=== PATIENT | female | born 1960 | race Caucasian/White ===

== ENCOUNTER 2018-10-25 11:24 | Emergency (ER) | payer OTHER ==
--- NOTE | 2018-10-25 14:18 | ER Document Report ---
ED Medical Screen (RME) - General Chief Complaint: Leg Pain Stated Complaint: RIGHT LEG PAIN Time Seen by Provider: 10/25/18 14:12 Primary Care Provider: KANDACE JONES MD [Primary Care Provider] - Follow up as needed Notes: Patient is a 4-year-old female presents to the emergency department with pain in her right popliteal region. States is been there for a week. Patient's denying any trauma. Patient states she was told by her primary care provider rule out DVT. Patient has no history of DVT, PE, is on no anticoagulants. GENERAL: Alert, interacts well. No acute distress. EXTREMITIES: Moves all 4 extremities spontaneously. No edema, normal radial and dorsalis pedis pulses bilaterally. No cyanosis. Minor pain right calf. I have greeted and performed a rapid initial assessment of this patient. A co mprehensive ED assessment and evaluation of the patient, analysis of test results and completion of the medical decision making process will be conducted by additional ED providers. I have specifically instructed the patient or family members with the patient to immediately return to any nursing staff should anything change in the patient's condition or with their chief complaint. Generalized pain right popliteal, no obvious swelling, erythema This medical record was dictated with voice recognizing software. There may be grammatical, syntax errors that are unintended. TRAVEL OUTSIDE OF THE [place] IN LAST 30 DAYS: No - Related Data Allergies/Adverse Reactions: No Known Allergies Allergy (Unverified 10/25/18 11:27) Past Medical History - Social History Frequency of alcohol use: Occasional Drug Abuse: None Renal/ Medical History: Denies: Hx Peritoneal Dialysis Physical Exam - Vital signs Vitals: Temp Pulse Resp BP Pulse Ox 98.1 F 53 L 16 171/97 H 96 10/25/18 11:43 10/25/18 11:43 10/25/18 11:43 10/25/18 11:43 10/25/18 11:43 Course - Vital Signs Vital signs: Temp Pulse Resp BP Pulse Ox 98.1 F 53 L 16 171/97 H 96 10/25/18 11:43 10/25/18 11:43 10/25/18 11:43 10/25/18 11:43 10/25/18 11:43 Doctor's Discharge - Discharge Referrals: KANDACE JONES MD [Primary Care Provider] - Follow up as needed
--- NOTE | 2018-10-25 16:23 | RADIOLOGY REPORT (SQ) ---
EXAM DESCRIPTION: VENOUS UNILATERAL LOWER COMPLETED DATE/TIME: 10/25/2018 4:13 pm REASON FOR STUDY: R lower leg, pain popliteal and calf COMPARISON: None. TECHNIQUE: Dynamic and static shepherd scale and color images acquired of the right leg venous system. S elected spectral images acquired with additional compression and augmentation maneuvers. The contrala teral common femoral vein and saphenofemoral junction were also imaged. Images stored on PACS. LIMITATIONS: None. FINDINGS: COMMON FEMORAL: Normal phasicity, compression and augmentation. No visualized echogenic ma terial on shepherd scale. No defects on color images. FEMORAL: Normal compression and augmentation. No visualized echogenic material on shepherd scale. No defe cts on color images. POPLITEAL: Normal compression, augmentation. No visualized echogenic material on shepherd scale. No defec ts on color images. CALF VESSELS: Normal compression, augmentation. No visualized echogenic material on shepherd scale. No de fects on color images. GSV and SSV: Normal compression, augmentation. No visualized echogenic material on shepherd scale. No def ects on color images. ANY DEEP VENOUS INSUFFICIENCY: Not evaluated. ANY EVIDENCE OF POPLITEAL CYST: No. OTHER: No other significant finding. CONTRALATERAL COMMON FEMORAL VEIN AND SAPHENOFEMORAL JUNCTION: Normal phasicity, compression and augmentation. No visualized echogenic material on shepherd scale. No de fects on color images. IMPRESSION: NO EVIDENCE DVT OR SVT IN THE RIGHT LEG. TECHNICAL DOCUMENTATION: JOB ID: [id number] [employer]- All Rights Reserved Reading location - IP/workstation name: [email or web address]
--- NOTE | 2018-10-25 17:44 | ER Document Report ---
ED Extremity Problem, Lower - General Chief Complaint: Leg Pain Stated Complaint: RIGHT LEG PAIN Time Seen by Provider: 10/25/18 14:12 Primary Care Provider: KANDACE JONES MD [Primary Care Provider] - Follow up as needed Notes: Patient is a 58-year-old female presents to the emergency department with pain in her right popliteal region. States is been there for a week. Patient's denying any trauma. Patient states she was told by her primary care provider to some to the ED to rule out DVT. Patient has no history of DVT, PE, is on no anticoagulants. Denies chest pain, shortness of breath, weakness, dizziness, headache. Past medical history: Hyperlipidemia, hypertension, diabetes, hypothyroid Medications: Losartan HCTZ, simvastatin, metoprolol, Synthroid, metformin. Allergies: None TRAVEL OUTSIDE OF THE [place] IN LAST 30 DAYS: No - Related Data Allergies/Adverse Reactions: No Known Allergies Allergy (Unverified 10/25/18 11:27) Past Medical History - General Information source: Patient - Social History Smoking Status: Current Some Day Smoker Frequency of alcohol use: Occasional Drug Abuse: None Family History: Reviewed & Not Pertinent Patient has suicidal ideation: No Patient has homicidal ideation: No - Past Medical History Cardiac Medical History: Reports: Hx Hypertension Endocrine Medical History: Reports: Hx Diabetes Mellitus Type 2 Renal/ Medical History: Denies: Hx Peritoneal Dialysis Past Surgical History: Reports: Hx Thyroid Surgery - thyroidectomy Review of Systems - Review of Systems Constitutional: denies: Fever, Malaise, Weakness EENT: No symptoms reported Cardiovascular: No symptoms reported Respiratory: No symptoms reported Gastrointestinal: No symptoms reported Genitourinary: No symptoms reported Female Genitourinary: No symptoms reported Musculoskeletal: See HPI Skin: No symptoms reported Hematologic/Lymphatic: See HPI Neurological/Psychological: No symptoms reported Physical Exam - Vital signs Vitals: Temp Pulse Resp BP Pulse Ox 98.1 F 53 L 16 171/97 H 96 10/25/18 11:43 10/25/18 11:43 10/25/18 11:43 10/25/18 11:43 10/25/18 11:43 - Notes Notes: GENERAL: Alert, interacts well. No acute distress. HEAD: Normocephalic, atraumatic. EYES: Pupils equal, round, and reactive to light. Extraocular movements intact. ENT: Oral mucosa moist, tongue midline. NECK: Full range of motion. Supple. Trachea midline. LUNGS: Clear to auscultation bilaterally, no wheezes, rales, or rhonchi. No respiratory distress. HEART: Regular rate and rhythm. No murmur ABDOMEN: Soft, non-tender. Non-distended. Bowel sounds present in all 4 quadrants. EXTREMITIES: Moves all 4 extremities spontaneously. No edema, normal radial and dorsalis pedis pulses bilaterally. No cyanosis. Pain upon palpation right popliteal region and proximal right calf. No erythema, no ecchymosis, no fluctuance or induration felt either area. 5 out of 5 strength all 4 extremities BACK: no cervical, thoracic, lumbar midline tenderness. No saddle anesthesia, normal distal neurovascular exam. NEUROLOGICAL: Alert and oriented x3. Normal speech. cranial nerves II through XII grossly intact PSYCH: Normal affect, normal mood. SKIN: Warm, dry, normal turgor. No rashes or lesions noted. Course - Re-evaluation Re-evalutation: 10/25/18 17:38 Venous Doppler Study 10/25/18 14:14 IMPRESSION: NO EVIDENCE DVT OR SVT IN THE RIGHT LEG. I discussed with the patient venous Doppler results being negative. Discussed potential diagnosis of a Anderson's cyst although venous Doppler unremarkable. Discussed following up with primary care provider and potential orthopedics. Patient voices understanding, stable for discharge. Patient's blood pressure was noted to be elevated in the emergency department. She continues to deny chest pain, shortness of breath, headache, lightheadedness, dizziness. States she took her at home medications this morning. - Vital Signs Vital signs: Temp Pulse Resp BP Pulse Ox 98.1 F 53 L 16 171/97 H 96 10/25/18 11:43 10/25/18 11:43 10/25/18 11:43 10/25/18 11:43 10/25/18 11:43 Discharge - Discharge Clinical Impression: Right leg pain Condition: Stable Disposition: HOME, SELF-CARE Instructions: Leg Pain Nonspecific ([facility]) Additional Instructions: As we discussed you have been seen and treated in the emergency department for pain in your right leg. We have successfully ruled out a blood clot. Please make sure he follow-up with your primary care provider and inevitably orthopedics if you continue with pain. You may have pulled a muscle but were unaware of it. Please also return to the emergency room for any concerns. Your blood pressure was elevated at today's visit. Please make sure you are taking your medications as prescribed and you follow-up with your primary care provider for continued care. Forms: Elevated Blood Pressure Referrals: KANDACE JONES MD [Primary Care Provider] - Follow up as needed DANTE TRINH MD [ACTIVE STAFF] - Follow up as needed
[2018-10-25 17:48] VITALS: BP 153/85
== END 2018-10-25 18:04 | disposition home or self-care (01) ==
LOC: ER 11:24
DX: M79.604 Pain in right leg (principal); I10 Essential (primary) hypertension; E11.9 Type 2 diabetes mellitus without complications; F17.200 Nicotine dependence, unspecified, uncomplicated
CPT/HCPCS: 93971; 99283